=== PATIENT | female | born 2000 | race Caucasian/White ===

== ENCOUNTER 2023-02-07 11:41 | Inpatient (IN) | payer OTHER, MEDICARE ==
[~2023-02-07] VITALS: Ht 170.2 cm; Wt 100.4 kg
[2023-02-07] MEDS ORDERED: LACO100T2 PO (11:56)
[2023-02-07] MEDS ORDERED: LEVE1000 PO (11:56)
[2023-02-07] MEDS ORDERED: LAMO100T2 PO (11:56)
[2023-02-07] MEDS ORDERED: DIGO250T PO (11:57)
[2023-02-07] MEDS ORDERED: BACL20TA PO (11:57)
[2023-02-07] MEDS ORDERED: RIVA10TA PO (11:57)
[2023-02-07] MEDS ORDERED: AMAN100T PO (11:57)
[2023-02-07] MEDS ORDERED: METO-358 PO (11:57)
[2023-02-07] MEDS ORDERED: GABA-532 PO (11:57)
[2023-02-07] MEDS ORDERED: levETIRAcetam 500 MG/5 ML VIAL IV ONE (12:15)
[2023-02-07] MEDS ORDERED: levETIRAcetam IV 1,000 MG in IV DEXTROSE 5% 100 ML IV ONE (12:15)
[2023-02-07 12:34] LABS: HEMATOCRIT 30.4 % (31.2-41.9); MEAN CORPUSCULAR HEMOGLOBIN 25.2 uug (24.7-32.8); MEAN CORPUSCULAR VOLUME 76.9 fL (75.5-95.3); PLATELET COUNT (AUTO) 388 K/uL (179-408)
--- NOTE | 2023-02-07 12:36 | NUR ---
PT IS IN ROOM #1B. DR HIDALGO EVALUATED THE PT.
[2023-02-07 12:47] LABS: CARBON DIOXIDE 27 mmol/L (21-32); CHLORIDE 105 mmol/L (98-107); CREATININE 0.7 mg/dL (0.6-1.3); GLUCOSE 98 mg/dL (74-106); POTASSIUM 3.9 mmol/L (3.5-5.1); UREA NITROGEN, BLOOD 9 mg/dL (7-18)
[2023-02-07 12:56] LABS: ALANINE AMINOTRANSFERASE 16 U/L (14-59); ALKALINE PHOSPHATASE 138 U/L (50-136); ASPARTATE AMINOTRANSFERASE 8 U/L (15-37); BILIRUBIN,TOTAL 0.3 mg/dL (0.2-1.0); DIGOXIN < 0.2 ng/mL (0.9-2.0); LIPASE 68 U/L (73-393); TOTAL PROTEIN, SERUM 7.4 g/dL (6.4-8.2)
[2023-02-07 13:02] LABS: *BILIRUBIN,URIN NEGATIVE (NEGATIVE); *BLOOD, URINE 1+ (NEGATIVE); *CLARITY,URINE CLOUDY (CLEAR); *COLOR,URINE Other (YELLOW); *KETONES,URINE NEGATIVE (NEGATIVE); *UROBILINOGEN,URINE 0.2 E.U./dl (NORMAL); LEUKOCYTE ESTERASE ,URINE 3+ (NEGATIVE); NITRITE, URINE POSITIVE (NEGATIVE); PH,URINE 7.5 (5.0-8.0); UGLUCOSE NEGATIVE (NEGATIVE)
[2023-02-07 13:09] LABS: *URINE HCG, QUAL NEGATIVE (NEGATIVE)
[2023-02-07 13:17] LABS: *AMPHETAMINE, URINE NEGATIVE (NEGATIVE); *CANNABINOID, URINE NEGATIVE (NEGATIVE); *COCCAINE, URINE NEGATIVE (NEGATIVE); *PHENCYCLIDINE SCREEN,URINE NEGATIVE (NEGATIVE)
[2023-02-07 13:49] LABS: BACTERIA,URINE MANY /HPF (NONE SEEN); SQUAMOUS EPITHELIAL CELL,UR MODERATE /HPF (NONE SEEN); WBC,URINE 50-80 /HPF (0-3)
[2023-02-07] MEDS ORDERED: CEFTRIAXONE /D5W 50ML IVPB **ER PYXIS IV ONE (14:12)
[2023-02-07] MEDS ORDERED: CEFTRIAXONE 1 G in IV DEXTROSE 5% 50 ML IV ONE (14:15)
--- NOTE | 2023-02-07 14:53 | NUR ---
REPORT WAS GIVEN TO TRAINING DEVELOPMENT MANAGER. PT WAS TRANSFERED TO TELEMETRY ROOM #307.
[2023-02-07] MEDS ORDERED: ONDANSETRON 4 MG/2 ML VIAL IV PRN (15:15)
[2023-02-07] MEDS ORDERED: MAGNESIUM HYDROXIDE 30 ML LIQUID UDC PO PRN (15:15)
[2023-02-07] MEDS ORDERED: ACETAMINOPHEN 325 MG TABLET PO PRN (15:15)
--- NOTE | 2023-02-07 15:50 | NUR ---
ADMITTED VIA W/C, ACCOMPANIED BY GLORIA PRECIADO FROM THE [facility]. ORIENTED TO SURROUNDINGS. HUNGRY. SNACK GIVEN. DENIES PAIN OR DISCOMFORT AT THIS TIME. PATIENT HAS A PORTOCATH ON THE RIGHT CHEST, ACCESSED IN THE ER. PATIENT ALSO HAS A SUPER PUBIC CATHETER.
[2023-02-07 15:54] VITALS: BP 108/61
[2023-02-07] MEDS: BACLOFEN 20 MG TABLET PO SCH (17:30)
[2023-02-07] MEDS: GABAPENTIN 300 MG CAPSULE PO SCH (17:30)
[2023-02-07] MEDS: AMANTADINE HCL 100 MG CAPSULE PO SCH (17:38)
[2023-02-07] MEDS: LAMOTRIGINE 200 MG TABLET PO SCH (18:00)
--- NOTE | 2023-02-07 19:30 | NUR ---
Received patient lying in bed. Asleep but easily arouse to verbal stimuli. Orientedx4. In no acute distress. Denies any pain or SOB. NSR on tele with HR of 87/min. Port a cath on right chest area intact and patent. Safety measure initiated and call light within reached.
[2023-02-07] MEDS: levETIRAcetam 500 MG TABLET PO SCH (19:38)
[2023-02-07 20:41] VITALS: BP 103/57
[2023-02-07] MEDS ORDERED: levETIRAcetam IV 1,500 MG in IV DEXTROSE 5% 100 ML IV SCH (21:00)
[2023-02-07] MEDS ORDERED: LAMOTRIGINE 200 MG TABLET PO SCH (21:00)
[2023-02-07 23:49] VITALS: BP 108/64
--- NOTE | 2023-02-08 05:19 | NUR ---
Slept well during the night. No seizure episode noted. NSR on tele with HR of 78/min. Supra pubic catheter intact and draining well. Needs attended to and met. Safety measure maintained and call light within reached.
[2023-02-08 05:29] VITALS: BP 101/47
[2023-02-08 06:39] LABS: HEMATOCRIT 30.3 % (31.2-41.9); MEAN CORPUSCULAR VOLUME 77.1 fL (75.5-95.3); PLATELET COUNT (AUTO) 361 K/uL (179-408)
[2023-02-08 07:09] LABS: CREATININE 0.7 mg/dL (0.6-1.3); MAGNESIUM 1.9 mg/dL (1.8-2.4); PHOSPHOROUS 3.9 mg/dL (2.5-4.9); POTASSIUM 3.8 mmol/L (3.5-5.1)
--- NOTE | 2023-02-08 07:30 | NUR ---
Sleeping, appears comfortable. Not in distress.
[2023-02-08] MEDS ORDERED: DIGOXIN 250 MCG TABLET PO SCH (09:00)
[2023-02-08] MEDS: levETIRAcetam 500 MG TABLET PO SCH ×2 (09:05→17:16)
[2023-02-08] MEDS: GABAPENTIN 300 MG CAPSULE PO SCH ×3 (09:06→17:20)
[2023-02-08] MEDS: BACLOFEN 20 MG TABLET PO SCH ×3 (09:06→17:20)
[2023-02-08] MEDS: LAMOTRIGINE 100 MG TABLET PO SCH (09:06)
[2023-02-08] MEDS: AMANTADINE HCL 100 MG CAPSULE PO SCH ×2 (09:07→17:20)
[2023-02-08] MEDS: METOPROLOL SUCCINATE XL 50 MG TAB.SR.24H PO SCH (09:08)
[2023-02-08] MEDS: RIVAROXABAN 10 MG TABLET PO SCH (09:09)
[2023-02-08 11:42] VITALS: BP 93/50
[2023-02-08] MEDS: CEFTRIAXONE 1 G in IV DEXTROSE 5% 50 ML IV SCH (13:10)
--- NOTE | 2023-02-08 14:00 | NUR ---
Port a cath clogged, unable to flush. Reinserted a new port a cath access, IV antibiotics, infusing well.
[2023-02-08 15:52] VITALS: BP 100/49
[2023-02-08] MEDS ORDERED: LACOSAMIDE 100 MG in IV NORMAL SALINE 50 ML IV SCH (16:00)
[2023-02-08] MEDS: LACOSAMIDE 50 MG TABLET PO SCH ×2 (17:15→20:58)
[2023-02-08] MEDS: LAMOTRIGINE 200 MG TABLET PO SCH (17:16)
--- NOTE | 2023-02-08 17:56 | NUR ---
Eating well. Seizures not noted. Side rails padded.
--- NOTE | 2023-02-08 20:00 | NUR ---
Received patient sleeping in bed, AAO x3-4, in no apparent distress. Will continue to monitor and continue plan of care.
[2023-02-09 00:50] VITALS: BP 106/60
[2023-02-09 06:50] LABS: HEMATOCRIT 30.4 % (31.2-41.9); MEAN CORPUSCULAR HEMOGLOBIN 25.1 uug (24.7-32.8); MEAN CORPUSCULAR VOLUME 76.5 fL (75.5-95.3); PLATELET COUNT (AUTO) 397 K/uL (179-408)
[2023-02-09 06:56] LABS: CREATININE 0.8 mg/dL (0.6-1.3); POTASSIUM 3.9 mmol/L (3.5-5.1)
--- NOTE | 2023-02-09 07:00 | NUR ---
PATIENT SLEPT WELL THROUGHOUT THE NIGHT, TOLERATED ANTIBIOTIC THERAPY WELL. DARLENE-CATH INTACT AND PATENT. CONTINUE PLAN OF CARE
[2023-02-09 08:36] VITALS: BP 107/67
[2023-02-09] MEDS ORDERED: DIGOXIN 500 MCG/2 ML AMP IV ONE (09:00)
[2023-02-09] MEDS: GABAPENTIN 300 MG CAPSULE PO SCH ×2 (09:15→14:52)
[2023-02-09] MEDS: levETIRAcetam 500 MG TABLET PO SCH (09:15)
[2023-02-09] MEDS: LAMOTRIGINE 100 MG TABLET PO SCH (09:15)
[2023-02-09] MEDS: METOPROLOL SUCCINATE XL 50 MG TAB.SR.24H PO SCH (09:16)
[2023-02-09] MEDS: LACOSAMIDE 50 MG TABLET PO SCH (09:16)
[2023-02-09] MEDS: BACLOFEN 20 MG TABLET PO SCH ×2 (09:16→14:52)
[2023-02-09] MEDS: AMANTADINE HCL 100 MG CAPSULE PO SCH (09:16)
[2023-02-09] MEDS: RIVAROXABAN 10 MG TABLET PO SCH (09:17)
[2023-02-09 11:56] VITALS: BP 102/59
--- NOTE | 2023-02-09 12:00 | NUR ---
ANXIOUS TO BE DISCHARGED. TELEMETRY DC'D. AWAITING RIDE FROM [facility].
[2023-02-09 12:07] LABS: LAMOTRIGINE/LAMICTAL <1.0 ug/mL (2.0-20.0)
[2023-02-09] MEDS ORDERED: CEFP200T14 PO (14:01)
[2023-02-09] MEDS ORDERED: LAMO100T2 PO (14:01)
[2023-02-09] MEDS ORDERED: LAMO200T2 PO (14:01)
[2023-02-09] MEDS ORDERED: LEVE750T4 PO (14:01)
[2023-02-09] MEDS: CEFTRIAXONE 1 G in IV DEXTROSE 5% 50 ML IV SCH (14:53)
--- NOTE | 2023-02-09 15:30 | NUR ---
PORTACATH ACCESS DC'D. NO C/O DISCOMFORT.
--- NOTE | 2023-02-09 15:50 | NUR ---
DISCHARGED VIA W/C, ACCOMPANIED BY ERNA MANRIQUE TO AUTO.
[2023-02-10] MEDS ORDERED: DIGOXIN 250 MCG TABLET PO SCH (09:00)
[2023-02-10 11:06] LABS: LEVETIRACETAM <2.0 ug/mL (10.0-40.0)
== END 2023-02-09 15:50 | disposition home or self-care (01) | DRG 699 ==
LOC: ER 11:41 → TELE3 14:40 → MEDSURG3 02-09 12:05
PROVIDERS: ADMIT Nurse Practitioner Acute Care; ATTEND Nurse Practitioner Acute Care
DX: T83.510A Infection and inflammatory reaction due to cystostomy catheter, initial encounter (principal); N39.0 Urinary tract infection, site not specified; Y84.6 Urinary catheterization as the cause of abnormal reaction of the patient, or of later complication, without mention of misadventure at the time of the procedure; G40.909 Epilepsy, unspecified, not intractable, without status epilepticus; Y92.89 Other specified places as the place of occurrence of the external cause; B96.89 Other specified bacterial agents as the cause of diseases classified elsewhere; D64.9 Anemia, unspecified; N31.9 Neuromuscular dysfunction of bladder, unspecified; S06.9XAS Unspecified intracranial injury with loss of consciousness status unknown, sequela; X58.XXXS Exposure to other specified factors, sequela; I48.0 Paroxysmal atrial fibrillation; Z79.01 Long term (current) use of anticoagulants; Z79.899 Other long term (current) drug therapy; F11.11 Opioid abuse, in remission; Z86.79 Personal history of other diseases of the circulatory system; M62.830 Muscle spasm of back
CPT/HCPCS: 36415; 70450; 71045; 80299; 83690; 83735; 84100; 84484; 84703; 85025; 93005; 93307; A4663; G0378; G0480; J0696; J1160; J1953